=== PATIENT | male | born 1955 | race Caucasian/White ===

== ENCOUNTER → 2021-07-22 00:37 | Outpatient (CLI) | payer OTHER, SELFPAY ==
[2021-07-22 17:30] LABS: SARS-CoV-2 RNA PCR Negative
== END ==
PROVIDERS: PCP Physician Assistant; Visit Provider Internal Medicine Gastroenterology
DX: Z01.812 Encounter for preprocedural laboratory examination (principal); Z20.822 Contact with and (suspected) exposure to COVID-19
CPT/HCPCS: C9803; U0003; U0005

== ENCOUNTER 2021-07-26 01:35 | Day surgery (SDC) | payer OTHER, SELFPAY ==
[2021-07-11 14:54] VITALS: BMI 33.5
[2021-07-26 08:02] VITALS: BP 126/69; PULSE 63; RESP 18; TEMP 35.7; O2SAT 100
[2021-07-26] MEDS: LACTATED RINGERS 1,000 ML 150 ML IV CONT (08:04)
--- NOTE | 2021-07-26 08:15 | P.PNAN_ITS ---
Anes - Initial Pre Proc Eval Procedure: Operation Date: 07/26/21 09:15 Proposed Procedures p Colonoscopy - Taurus Wright MD Date/Time: 07/26/21 08:15 Surgeon: Taurus Wright MD Pre Op Diagnosis: positive cologuard Patient Data Age: 65 Gender: M Height: 1.83 m Weight: 110.6 kg Last Vital Signs Temp 35.7 C L 07/26/21 08:02 Pulse 63 07/26/21 08:02 Resp 18 07/26/21 08:02 BP 126/69 07/26/21 08:02 Pulse Ox 100 07/26/21 08:02 Allergies Allergy/AdvReac Type Severity Reaction Status Date / Time No Known Allergies Allergy Verified 07/26/21 08:01 Home Medications Medication Instructions Recorded Confirmed Type aspirin [Adult Low Dose Aspirin] 81 mg PO DAILY 07/11/21 07/26/21 History atorvastatin 40 mg PO DAILY 07/11/21 07/26/21 History cetirizine [Zyrtec] 10 mg PO DAILY 07/11/21 07/26/21 History ezetimibe 10 mg PO DAILY 07/11/21 07/26/21 History fluticasone propionate [Flonase] 1 spray INTRANASAL DAILY 07/11/21 07/26/21 History lisinopril 10 mg PO DAILY 07/11/21 07/26/21 History metoprolol succinate 25 mg PO DAILY 07/11/21 07/26/21 History nitroglycerin 0.4 mg SUBLINGUAL Q5-15M PRN 07/11/21 07/26/21 History ranolazine 500 mg PO Q12H 07/11/21 07/26/21 History Patient hx anesthesia problems: none Family hx anesthesia problems: none Results Review: All pre-operative results and documents have been reviewed as part of the pre-operative evaluation. [facility] Past Medical History Medical History (Updated 07/26/21 @ 08:16 by Humberto Ordonez MD) CAD (coronary artery disease) HTN (hypertension) Obesity Surgical History Surgical History (Updated 07/26/21 @ 08:16 by Humberto Ordonez MD) History of coronary artery stent placement Social History Social History Smoking packs per day: 1.5 Smoking cigarettes per day: 30.0 Years smoked: 17 Smoking pack-years: 25.50 Smoking status: Former smoker Tobacco type: cigarettes Smoking end date: 09/09/88 Alcohol intake: former Substance use: former Living arrangements: with family Spiritual care concerns: No Anes - Eval Final PreProcedure Day of Procedure 07/26/21 08:15 Patient weight: obese Heart: regular rate and rhythm Lungs: clear to auscultation Airway: Mallampati scale Neurological: alert and oriented Last oral intake: >/= 8 hours ASA classification: III Emergent: no Anesthetic plan: proceed Anesthesia type and monitoring: general GIVS and standard monitoring Results Review: All pre-operative results and documents have been reviewed as part of the pre-operative evaluation. Informed Consent: The patient's anesthetic plan and its attendant risks and benefits were discussed with the patient/family/POA. Questions were solicited a nd answers provided to the satisfaction of the patient/family/POA.
--- NOTE | 2021-07-26 09:04 | PM.HPGS ---
History of Present Illness History of Present Illness Consent: Risks, benefits, and alternatives have been discussed and questions answered. Patient agrees to proceed with procedure. Chief complaint: positive cologuard Narrative: Mj Stanton is a 65 year old male here for first colonoscopy, had cologuard + Review of Systems Constitutional: Constitutional: Denies headache(s) and Denies weakness Eyes: Eyes: Denies blurry vision ENT: Reports Normal hearing present, Denies headache(s) and Denies neck pain Cardiovascular: Cardiovascular: Denies chest pain and Denies dyspnea Respiratory: Respiratory: Denies dyspnea Gastrointestinal: Gastrointestinal: Reports no additional gastrointestinal complaints Genitourinary: Genitourinary: Denies dysuria Musculoskeletal: Musculoskeletal: Denies neck pain Integumentary/Breasts: Skin/Breast: Denies dry skin Neurologic: Reports Normal hearing present, Denies headache(s) and Denies weakness Psychiatric: Psychiatric: Denies anxiety Endocrine: Endocrine: Denies change in body appearance Hematologic/Lymphatic: Hematologic/Lymphatic: Denies easy bleeding Allergic/Immunologic: Allergic/Immunologic: Denies urticaria PMFSH Past Medical History Medical History (Updated 07/26/21 @ 09:05 by Taurus Wright MD) CAD (coronary artery disease) HTN (hypertension) Obesity Positive colorectal cancer screening using Cologuard test Surgical History Surgical History (Updated 07/26/21 @ 08:16 by Humberto Ordonez MD) History of coronary artery stent placement Social History Social History Smoking packs per day: 1.5 Smoking cigarettes per day: 30.0 Years smoked: 17 Smoking pack-years: 25.50 Smoking status: Former smoker Tobacco type: cigarettes Smoking end date: 09/09/88 Alcohol intake: former Substance use: former Living arrangements: with family Spiritual care concerns: No Meds Home Medications and Allergies Home Medications Medication Instructions Recorded Confirmed Type aspirin [Adult Low Dose Aspirin] 81 mg PO DAILY 07/11/21 07/26/21 History atorvastatin 40 mg PO DAILY 07/11/21 07/26/21 History cetirizine [Zyrtec] 10 mg PO DAILY 07/11/21 07/26/21 History ezetimibe 10 mg PO DAILY 07/11/21 07/26/21 History fluticasone propionate [Flonase] 1 spray INTRANASAL DAILY 07/11/21 07/26/21 History lisinopril 10 mg PO DAILY 07/11/21 07/26/21 History metoprolol succinate 25 mg PO DAILY 07/11/21 07/26/21 History nitroglycerin 0.4 mg SUBLINGUAL Q5-15M PRN 07/11/21 07/26/21 History ranolazine 500 mg PO Q12H 07/11/21 07/26/21 History Allergies Allergy/AdvReac Type Severity Reaction Status Date / Time No Known Allergies Allergy Verified 07/26/21 08:01 Vital Signs Vital Signs - 24 hr 07/26/21 08:02 Temperature 96.2 F L Pulse Rate 63 Respiratory Rate 18 Blood Pressure 126/69 Pulse Oximetry 100 Exam Const: General: comfortable and no acute distress HENMT: General nose exam: Normal nares present Eyes: General: appearance normal, both eyes and all related structures Neck: Neck: no JVD Resp: Auscultation: clear to auscultation bilaterally Cardio: Rate: regular rate Rhythm: regular rhythm GI: Inspection: non-distended GI Palp: Yes Soft to palpation Skin: General skin exam: normal color Neuro: General: gait normal Speech: normal speech Extrem: General: normal to inspection Psych: Mental Status: mental status grossly normal Assessment and Plan Assessment and plan (1) Positive colorectal cancer screening using Cologuard test: Code(s): R19.5 - Other fecal abnormalities Status: Acute Assessment and Plan: colonoscopy
[2021-07-26 10:11] VITALS: BP 146/103; PULSE 55; RESP 15; TEMP 36.6; O2SAT 97
[2021-07-26 10:21] VITALS: BP 96/66; PULSE 61; RESP 15; O2SAT 97
[2021-07-26 10:31] VITALS: BP 113/60; PULSE 50; RESP 18; O2SAT 100
== END 2021-07-26 10:45 | disposition home or self-care (01) ==
PROVIDERS: PCP Physician Assistant; Visit Provider Internal Medicine Gastroenterology
PROC: 0DJD8ZZ Inspection of Lower Intestinal Tract, Via Natural or Artificial Opening Endoscopic (ICD-10-PCS; CPT 45378; principal; 2021-07-26 09:15)
DX: R19.5 Other fecal abnormalities (principal); D12.0 Benign neoplasm of cecum; D12.8 Benign neoplasm of rectum; K63.5 Polyp of colon; I10 Essential (primary) hypertension; I25.10 Atherosclerotic heart disease of native coronary artery without angina pectoris; E66.9 Obesity, unspecified; Z68.33 Body mass index [BMI] 33.0-33.9, adult; Z79.82 Long term (current) use of aspirin; Z95.5 Presence of coronary angioplasty implant and graft; Z87.891 Personal history of nicotine dependence
CPT/HCPCS: 45385; 88305; C9803; J2370; J2704; J7120; U0003; U0005

== ENCOUNTER 2023-08-06 01:40 | Day surgery (SDC) | payer OTHER, MEDICARE, SELFPAY ==
[2023-07-17 15:42] VITALS: BMI 30.8
--- NOTE | 2023-08-05 09:51 | SUR.PREOP ---
Patient called regarding upcoming procedure. Reviewed preop instructions, appointment times, and procedure prep.
[2023-08-06 06:49] VITALS: BP 117/67; PULSE 68; RESP 18; TEMP 36.3; O2SAT 99; BMI 30.7
[2023-08-06] MEDS: LACTATED RINGERS 1,000 ML 150 ML IV CONT (07:16)
--- NOTE | 2023-08-06 07:41 | WPDANESEPPF ---
Anes - Initial Pre Proc Eval Procedure: Operation Date: 08/06/23 08:00 Proposed Procedures p Colonoscopy - Taurus Wright MD Date/Time: 08/06/23 07:41 Surgeon: Taurus Wright MD Pre Op Diagnosis: Anemia, unspecified Patient Data Age: 67 Gender: M Height: 1.83 m Weight: 102.6 kg Last Vital Signs Temp 97.3 F L 08/06/23 06:49 Pulse 68 08/06/23 06:49 Resp 18 08/06/23 06:49 BP 117/67 08/06/23 06:49 Pulse Ox 99 08/06/23 06:49 O2 Del Method Room Air 08/06/23 06:49 Allergies Allergy/AdvReac Type Severity Reaction Status Date / Time No Known Allergies Allergy Verified 08/06/23 06:47 Home Medications Medication Instructions Recorded Confirmed Type aspirin 81 mg tablet 81 mg PO DAILY 07/11/21 08/06/23 History atorvastatin 40 mg tablet 80 mg PO DAILY 07/11/21 08/06/23 History ezetimibe 10 mg tablet 10 mg PO DAILY 07/11/21 08/06/23 History fluticasone propionate 50 1 spray intranasal DAILY 07/11/21 08/06/23 History mcg/actuation nasal spray,suspension lisinopril 10 mg tablet 10 mg PO DAILY 07/11/21 08/06/23 History metoprolol succinate 25 mg 25 mg PO DAILY 07/11/21 08/06/23 History tablet,extended release 24 hr nitroglycerin 0.4 mg sublingual 0.4 mg sublingual Q5-15M PRN Chest 07/11/21 08/06/23 History tablet Pain ranolazine 500 mg tablet,extended 500 mg PO Q12H 07/11/21 08/06/23 History release,12 hr semaglutide (weight loss) 1 mg/0.5 1 mg subcut Q7D 07/17/23 08/06/23 History mL subcutaneous pen injector Patient hx anesthesia problems: none Family hx anesthesia problems: none Results Review: All pre-operative results and documents have been reviewed as part of the pre-operative evaluation. [facility] Past Medical History Medical History CAD (coronary artery disease) HTN (hypertension) Obesity Positive colorectal cancer screening using Cologuard test Surgical History Surgical History History of coronary artery stent placement Social History Social History (Updated 01/10/22 @ 08:22 by KARIN Simental) Smoking packs per day: 1.5 Smoking cigarettes per day: 30.0 Years smoked: 17 Smoking pack-years: 25.50 Smoking status: Former smoker Tobacco type: cigarettes Smoking end date: 09/09/88 Alcohol intake: former Substance use: former Substance use type: does not use Living arrangements: with family Occupation/Education: retired Spiritual care concerns: No Anes - Eval Final PreProcedure Day of Procedure 08/06/23 07:41 Patient weight: obese Heart: regular rate and rhythm Lungs: clear to auscultation Airway: Mallampati scale class II Neurological: alert and oriented Last oral intake: >/= 8 hours ASA classification: III Emergent: no Anesthetic plan: proceed Anesthesia type and monitoring: general GIVS and standard monitoring Results Review: All pre-operative results and documents have been reviewed as part of the pre-operative evaluation. Informed Consent: The patient's anesthetic plan and its attendant risks and benefits were discussed with the patient/family/POA. Questions were solicited and answers provided to the satisfaction of the patient/family/POA.
--- NOTE | 2023-08-06 07:43 | PM.HPGS ---
History of Present Illness History of Present Illness Consent: Risks, benefits, and alternatives have been discussed and questions answered. Patient agrees to proceed with procedure. Chief complaint: Anemia, unspecified Narrative: Mj Stanton is a 67 year old male with large cecal polyp removed in 2020 Review of Systems Constitutional: Constitutional: Denies headache(s) and Denies weakness Eyes: Eyes: Denies blurry vision ENT: Reports Normal hearing present, Denies headache(s) and Denies neck pain Cardiovascular: Cardiovascular: Denies chest pain and Denies dyspnea Respiratory: Respiratory: Denies dyspnea Gastrointestinal: Gastrointestinal: Reports no additional gastrointestinal complaints Genitourinary: Genitourinary: Denies dysuria Musculoskeletal: Musculoskeletal: Denies neck pain Integumentary/Breasts: Skin/Breast: Denies dry skin Neurologic: Reports Normal hearing present, Denies headache(s) and Denies weakness Psychiatric: Psychiatric: Denies anxiety Endocrine: Endocrine: Denies change in body appearance Hematologic/Lymphatic: Hematologic/Lymphatic: Denies easy bleeding Allergic/Immunologic: Allergic/Immunologic: Denies urticaria PMFSH Past Medical History Medical History (Updated 08/06/23 @ 07:44 by Taurus Wright MD) Adenomatous colon polyp CAD (coronary artery disease) HTN (hypertension) Obesity Positive colorectal cancer screening using Cologuard test Surgical History Surgical History History of coronary artery stent placement Social History Social History (Updated 01/10/22 @ 08:22 by KARIN Simental) Smoking packs per day: 1.5 Smoking cigarettes per day: 30.0 Years smoked: 17 Smoking pack-years: 25.50 Smoking status: Former smoker Tobacco type: cigarettes Smoking end date: 09/09/88 Alcohol intake: former Substance use: former Substance use type: does not use Living arrangements: with family Occupation/Education: retired Spiritual care concerns: No Meds Home Medications and Allergies Home Medications Medication Instructions Recorded Confirmed Type aspirin 81 mg tablet 81 mg PO DAILY 07/11/21 08/06/23 History atorvastatin 40 mg tablet 80 mg PO DAILY 07/11/21 08/06/23 History ezetimibe 10 mg tablet 10 mg PO DAILY 07/11/21 08/06/23 History fluticasone propionate 50 1 spray intranasal DAILY 07/11/21 08/06/23 History mcg/actuation nasal spray,suspension lisinopril 10 mg tablet 10 mg PO DAILY 07/11/21 08/06/23 History metoprolol succinate 25 mg 25 mg PO DAILY 07/11/21 08/06/23 History tablet,extended release 24 hr nitroglycerin 0.4 mg sublingual 0.4 mg sublingual Q5-15M PRN Chest 07/11/21 08/06/23 History tablet Pain ranolazine 500 mg tablet,extended 500 mg PO Q12H 07/11/21 08/06/23 History release,12 hr semaglutide (weight loss) 1 mg/0.5 1 mg subcut Q7D 07/17/23 08/06/23 History mL subcutaneous pen injector Allergies Allergy/AdvReac Type Severity Reaction Status Date / Time No Known Allergies Allergy Verified 08/06/23 06:47 Vital Signs Vital Signs - 24 hr 08/06/23 06:49 Temperature 97.3 F L Pulse Rate 68 Respiratory Rate 18 Blood Pressure 117/67 Pulse Oximetry 99 Oxygen Delivery Room Air Exam Const: General: comfortable and no acute distress HENMT: Face/Nose/Sinus: Normal nares present Eyes: General: appearance normal, both eyes and all related structures Neck: Neck: no JVD Resp: Auscultation: clear to auscultation bilaterally Cardio: Rate: regular rate Rhythm: regular rhythm GI: Inspection: non-distended GI Palp: Yes Soft to palpation Skin: General skin exam: normal color Neuro: General: gait normal Speech: normal speech Extrem: General: normal to inspection Psych: Mental Status: mental status grossly normal Assessment and Plan Assessment and plan (1) Adenomatous colon polyp: Code(s):
[2023-08-06 08:25] VITALS: BP 77/44; PULSE 61; RESP 12; O2SAT 99
[2023-08-06 08:35] VITALS: BP 99/52; PULSE 58; RESP 26; O2SAT 98
[2023-08-06 08:45] VITALS: BP 116/76; PULSE 56; RESP 16; O2SAT 100
== END 2023-08-06 08:59 | disposition home or self-care (01) ==
PROVIDERS: PCP Physician Assistant; Visit Provider Internal Medicine Gastroenterology
PROC: 0DJD8ZZ Inspection of Lower Intestinal Tract, Via Natural or Artificial Opening Endoscopic (ICD-10-PCS; CPT 45378; principal; 2023-08-06 08:00)
DX: Z12.11 Encounter for screening for malignant neoplasm of colon (principal); D12.2 Benign neoplasm of ascending colon; D12.3 Benign neoplasm of transverse colon; D12.0 Benign neoplasm of cecum; K64.8 Other hemorrhoids; I10 Essential (primary) hypertension; Z79.82 Long term (current) use of aspirin; Z87.891 Personal history of nicotine dependence; Z79.899 Other long term (current) drug therapy
CPT/HCPCS: 45385; 45380; 88305; J2704; J7120

== ENCOUNTER 2023-08-08 10:10 | Outpatient (CLI) | payer OTHER, MEDICARE, SELFPAY ==
--- NOTE | ~2023-08-08 | MR_ITS ---
EXAMINATION: MR IAC wo/w con DATE: 08/08/2023 11:32 INDICATION: Asymmetrical sensorineural hearing loss, left side. TECHNIQUE: Magnetic resonance imaging (MRI) of the brain, brainstem, and internal auditory canals was performed without and with 20 mL MultiHance intravenous contrast. COMPARISON: None. FINDINGS: There is no intracranial hemorrhage, acute infarction, or abnormal intracranial mass lesion . The ventricles are normal in size. There is mild mucosal thickening in the paranasal sinuses. There are likely changes of right ocular lens replacement surgery. The internal auditory canals and inner ears are normal. There is a left otomastoid effusion. IMPRESSION: 1. Normal brain. 2. Left otomastoid effusion. Reviewed, dictated and finalized at location A. NOGRAPHY PROFESSOR
== END 2023-08-08 10:11 ==
LOC: GOSHIMG 10:11
PROVIDERS: PCP Physician Assistant; Visit Provider Otolaryngology
DX: H90.5 Unspecified sensorineural hearing loss (principal)
CPT/HCPCS: 70553; A9577